=== PATIENT | female | born 1955 ===

== ENCOUNTER 2017-07-22 09:35 | Day surgery (SDC) | payer MEDICARE, OTHER ==
[2017-07-22] MEDS ORDERED: Lactated Ringer's 500 ML IV ONE (10:56)
[2017-07-22] MEDS ORDERED: Propofol 10 mg/ml Inj (20 ML) ONE (11:58)
[2017-07-22 12:30] VITALS: TEMP 96.7; O2SAT 99
[2017-07-22 12:40] VITALS: BP 115/80; PULSE 88; RESP 13
== END 2017-07-22 14:10 | disposition home or self-care (01) ==
LOC: H.ENDO 09:35
PROVIDERS: ATTEND Internal Medicine Gastroenterology
DX: Z86.010 Personal history of colon polyps (principal); I10 Essential (primary) hypertension; D12.7 Benign neoplasm of rectosigmoid junction; K64.0 First degree hemorrhoids; K62.1 Rectal polyp
CPT/HCPCS: 45380; 88305; J2001; J2704; J7120